=== PATIENT | female | born 1985 | race Hispanic/Latino ===

== ENCOUNTER 2017-04-01 05:19 | Emergency (ER) | payer OTHER ==
[2017-04-01 05:34] VITALS: RESP 16; TEMP 98.2; O2SAT 100
--- NOTE | 2017-04-01 06:16 | ED PDOC ---
HPI: Chest Pain Time Seen by Provider: 04/01/17 05:35 Chief Complaint (Nursing): Palpitations Chief Complaint (Provider): Chest pain History Per: Patient History/Exam Limitations: no limitations Onset/Duration Of Symptoms: Days (2) Additional Complaint(s): Patient is a 32 y/o female with no significant past medical history presenting to the emergency department for intermittent shortness of breath that started two days with associated nausea, left sided neck pain, palpitations, and chest pain. Reports being unable to take a full breath after waking up this morning. Denies any similar symptoms in the past, history of anxiety, stress as a contributing factor, taking control, surgical history, fever, or other complaints. PCP: Dr. Shawanda Benitez Past Medical History Reviewed: Historical Data, Nursing Documentation, Vital Signs Vital Signs: Last Vital Signs Temp 98.2 F 04/01/17 05:31 Pulse 104 H 04/01/17 07:02 Resp 16 04/01/17 05:31 BP 122/82 04/01/17 05:52 Pulse Ox 100 04/01/17 07:02 - Medical History PMH: No Chronic Diseases - Surgical History Other surgeries: leg surgery - Social History Current smoker - smoking cessation education provided: No Ex-Smoker (has not smoked in the last 12 months): No Alcohol: Social Drugs: Denies - Allergies Allergies/Adverse Reactions: Allergies Allergy/AdvReac Type Severity Reaction Status Date / Time No Known Allergies Allergy Verified 04/01/17 05:34 Review of Systems ROS Statement: Except As Marked, All Systems Reviewed And Found Negative Constitutional: Negative for: Fever Cardiovascular: Positive for: Chest Pain, Palpitations Respiratory: Positive for: Shortness of Breath (intermittent) Gastrointestinal: Positive for: Nausea Musculoskeletal: Positive for: Neck Pain (left) Physical Exam - Reviewed Nursing Documentation Reviewed: Yes Vital Signs Reviewed: Yes - Physical Exam Appears: Positive for: Well, Non-toxic, No Acute Distress Head Exam: Positive for: ATRAUMATIC, NORMAL INSPECTION, NORMOCEPHALIC Skin: Positive for: Normal Color, Warm, Dry Eye Exam: Positive for: Normal appearance Neck: Positive for: Normal Cardiovascular/Chest: Positive for: Tachycardia. Negative for: Murmur Respiratory: Positive for: Normal Breath Sounds. Negative for: Accessory Muscle Use, Respiratory Distress Pulses-Radial (L): 2+ Gastrointestinal/Abdominal: Positive for: Normal Exam, Soft. Negative for: Tenderness Extremity: Positive for: Normal ROM. Negative for: Pedal Edema Neurologic/Psych: Positive for: Alert, Oriented (x3) - Laboratory Results Result Diagrams: 04/01/17 06:12 - ECG ECG Rhythm: Positive for: Normal QRS, Sinus Tachycardia. Negative for: ST/T Changes Rate: 104 O2 Sat by Pulse Oximetry: 100 (RA) Pulse Ox Interpretation: Normal Medical Decision Making Medical Decision Making: Time: 05:56 Initial impression: Chest pain, palpitations, dyspnea Differential diagnoses include but not limited to cardiac arrhythmias, pulmonary embolism, acute coronary syndrome Initial plan: EKG Labs: BMP, Troponin, CBC, D Dimer Chest x-ray Longitudinal Float Operator Reevaluation Scribe Attestation: Documented by Carly Curtis, acting as a scribe for Jarret Solorzano MD. Provider Scribe Attestation: All medical record entries made by the Scribe were at my direction and personally dictated by me. I have reviewed the chart and agree that the record accurately reflects my personal performance of the history, physical exam, medical decision making, and the department course for this patient. I have also personally directed, reviewed, and agree with the discharge instructions and disposition. Disposition - Disposition Referrals: Shawanda Benitez MD [Primary Care Provider] - Disposition: Transfer of Care Disposition Time: 07:00 Condition: STABLE Forms: [employer] [employer] [facility] ([facility]) Patient Signed Over To: Bairon Wyatt Handoff Comments: Labs pending
[2017-04-01 06:23] LABS: BASO % 0.5 % (0.0-2.0); EOS # 0.1 K/uL (0.0-0.7); EOS % 2.2 % (0.0-4.0); HEMATOCRIT 38.4 % (34.0-47.0); LYMPH # 2.3 K/uL (1.0-4.3); LYMPH % 43.1 % (20.0-40.0); MEAN CELL VOLUME 90.3 fl (81.0-99.0); MEAN CORPUSCULAR HEMOGLOBIN 30.6 pg (27.0-31.0); MEAN CORPUSCULAR HGB CONC 33.9 g/dL (33.0-37.0); MEAN PLATELET VOLUME 8.4 fl (7.2-11.7); MONO # 0.3 K/uL (0.0-0.8); MONO % 6.5 % (0.0-10.0); NEUT # 2.6 K/uL (1.8-7.0); NEUT % 47.7 % (50.0-75.0); NRBC % 0.1 % (0.0-0.0); RED CELL DISTRIBUTION WIDTH 13.1 % (11.5-14.5); WHITE BLOOD COUNT 5.4 K/uL (4.8-10.8)
[2017-04-01 07:07] LABS: BLOOD UREA NITROGEN 11 mg/dl (7-17); CARBON DIOXIDE 25 mmol/L (22-30); CHLORIDE 107 mmol/L (98-107); GFR AFRICAN-AMERICAN > 60; GLUCOSE,RANDOM 85 mg/dL (65-105); POTASSIUM 3.7 MMOL/L (3.6-5.0); SODIUM 142 mmol/l (132-148)
--- NOTE | 2017-04-01 07:12 | ED PDOC ---
- Laboratory Results Result Diagrams: 04/01/17 06:12 04/01/17 06:12 - ECG ECG: Positive for: Interpreted By Me ECG Rhythm: Positive for: Normal QRS, Normal ST Segment, Sinus Tachycardia (104) . Negative for: ST/T Changes Interpretation Of Abn EKG: no evidence of ischemia O2 Sat by Pulse Oximetry: 100 (RA) Pulse Ox Interpretation: Normal - Radiology X-Ray: Interpreted by Me X-Ray Interpretation: No Acute Disease - Progress ED Course And Treament: sx all resolved advise close f/u with pmd. and cards. pt agree's with plan and leaves ambulatory and in good spirits. Re-evaluation Time: 07:39 Condition: Improved Medical Decision Making Medical Decision Making: Time: 7:00 --Patient signed out to me by Dr. Jarret Solorzano pending labs. Scribe Attestation: Documented by Suresh Moyer, acting as a scribe for Bairon Wyatt MD Provider Scribe Attestation: All medical record entries made by the Scribe were at my direction and personally dictated by me. I have reviewed the chart and agree that the record accurately reflects my personal performance of the history, physical exam, medical decision making, and the department course for this patient. I have also personally directed, reviewed, and agree with the discharge instructions and disposition. Disposition Counseled Patient/Family Regarding: Studies Performed, Diagnosis, Need For Followup - Clinical Impression Clinical Impression: Palpitations - POA Present On Arrival: None - Disposition Referrals: Shawanda Benitez MD [Primary Care Provider] - (2 to 3 days) Franko Lloyd MD [Staff Provider] - (2 to 3 days) Disposition: Routine/Home Disposition Time: 07:40 Condition: STABLE Instructions: Palpitations (ED) Forms: [employer] ([place]), [facility] ED School/Work Excuse
[2017-04-01 07:59] VITALS: BP 121/70; PULSE 81
--- NOTE | 2017-04-01 08:48 | RAD ---
HISTORY: chest pain COMPARISON: No prior. TECHNIQUE: Chest PA and lateral FINDINGS: LUNGS: No active pulmonary disease. PLEURA: No significant pleural effusion identified. No pneumothorax apparent. CARDIOVASCULAR: Normal. OSSEOUS STRUCTURES: No significant abnormalities. VISUALIZED UPPER ABDOMEN: Normal. OTHER FINDINGS: None. IMPRESSION: No acute cardiopulmonary disease appreciated.
--- NOTE | 2017-04-01 10:46 | CARD ---
APPROVED REPORT EKG Measurement Heart [id number] <Conclusion> Sinus tachycardia Otherwise normal ECG
== END 2017-04-01 08:36 | disposition home or self-care (01) ==
LOC: H.ER 05:19
DX: R00.2 Palpitations (principal); M54.2 Cervicalgia